=== PATIENT | female | born 1995 | race Caucasian/White ===

== ENCOUNTER 2020-12-23 01:16 | Emergency (ER) | payer OTHER ==
[~2020-12-23] VITALS: Ht 172.7 cm; Wt 77.8 kg
--- NOTE | ~2020-12-23 | EMS ---
[address] [address] EMS Patient Care Report Name: DARRON GARCIA Room #: REG CAROL MJennifer#: [id number] Admission: 12/23/20 Attend Phys: Discharge: Date of : [birth year] Report #: [id number] THIS REPORT FOR: //name// Report Transmitted: 12/23/2020 01:16 EMS Care Summary [facility] MED-ACT Incident [id number] @ 12/23/2020 00:43 Incident Location [address] [facility] er 14 Patient DARRON GARCIA Female, 25 Years 1995 Patient Address [address] [place] [address] Patient History Other,Gastro-Esophageal Reflux Disease (GERD), Patient Allergies Other drug allergy, Patient Medications Methylphenidate, Fexofenadine, Famotidine, Omeprazole, Chief Complaint "She had an allergic reaction." Disposition Transported No Lights/[place] Dis[place] Reason Allergic Reaction/Stings Transported To [facility] Narrative Dispatched to C1 Allergic Reaction. Upon our arrival, patient is noted sitting in ER Room 14 in no apparent distress. She is AOx4. She has no increased work of breathing. Her respirations are adequate in depth and volume. She looks perfused in color for ethnicity, but has some hives and welts on her calves [address] [address] EMS Patient Care Report Name: DARRON GARCIA Room #: REG Edith#: [id number] Admission: 12/23/20 Attend Phys: Discharge: Date of : [birth year] Report #: [id number] upon first examination. RN and patient report: Patient came in to [facility] after work in order to receive her second dose of the Covid vaccine. She received the vaccine at 2049. Around 2109 she started to develop flushing and itching of arms. Patient then developed hives on her thighs and itchiness on her thighs as well. 50mg of Benadryl was administered. Shortly thereafter, patient developed nausea. Due to this, СВЕТЛАНА Munson followed the anaphylaxis protocol since it involved more than one organ system with GI and integumentary. Her first epi was administered around 2149. Patient also received a saline bolus. 2nd epi was administered around 00:26. EMS was then activated for an Emergent Transfer due to the concern of having rebound anaphylaxis. Patient denies any difficulty breathing at any point of her reaction. She reports nausea, itchiness and hives. She denies any pain but reports feeling "different" after the administration of Benadryl. Upon our entrance into the ER, S47 greets EMS and reports, "They wouldn't give report to us. They said we might as well wait for the ambulance." Report obtained by RN. Physical exam, PMH and vitals obtained from СВЕТЛАНА Munson RN. Patient was able to self ambulate to the cot where she is secured with straps plus rails. Cot wheeled to ambulance. Vitals obtained and 4 Lead placed. Patient rests comfortably on the cot throughout transport. [facility] contacted via radio. Cot wheeled to ER Room 11 where patient is able to move herself from cot to facility bed. Report given to RN and MD. Initial Vitals @01:06P: 100,SpO2: 100,IN Suspected: false @01:09P: 99,BP: 140/81,SpO2: 99, @01:03P: 91,R: 20,BP: 135/84,Pain: 0/10,Temp: 97.9F, @PTAP: 95,R: 18,BP: 136/72,SpO2: 100, Assessments @00:55MENTAL:Person Oriented,Time Oriented,Place Oriented,Event Oriented,SKIN:Other,HEENT:Head/Face: No Abnormalities,Neck/Airway: No Abnormalities,LUNG SOUNDS:General: Nausea,ABDOMEN:General: Nausea,PELVIS//GI:EXTREMITIES:Left Arm: No Abnormalities,Right Arm: No Abnormalities,Left Leg: No Abnormalities,Right Leg: No Abnormalities,PULSE:NEURO: Impression Anaphylaxis Procedures @PTAEpinephrine 1:1 - 0.3 Milligrams (mg) - Intramuscular (IM)Response: Improved@PTADiphenhydramine - 50 Milligrams (mg) - Intramuscular (IM)Response: Worse@PTAEpinephrine 1:1 - 0.3 Milligrams (mg) - Intramuscular (IM)Response: Improved@PTASaline - 500 Milliliters (ml) - Intravenous (IV)Response: Improved@PTASurgical Mask on PatientResponse: Unchanged [facility] [address] [place] [address] EMS Patient Care Report Name: DARRON GARCIA Room #: REG Edith#: [id number] Admission: 12/23/20 Attend Phys: Discharge: Date of : 89 Report #: [id number] Timeline PHYSICAL SCIENCE PROFESSOR,Epinephrine 1:1 - 0.3 Milligrams (mg) - Intramuscular (IM),Response: Improved PHYSICAL SCIENCE PROFESSOR,Diphenhydramine - 50 Milligrams (mg) - Intramuscular (IM),Response: Worse PHYSICAL SCIENCE PROFESSOR,Epinephrine 1:1 - 0.3 Milligrams (mg) - Intramuscular (IM),Response: Improved PHYSICAL SCIENCE PROFESSOR,Saline - 500 Milliliters (ml) - Intravenous (IV),Response: Improved PHYSICAL SCIENCE PROFESSOR,Surgical Mask on Patient,Response: Unchanged PHYSICAL SCIENCE PROFESSOR,BP: 136/72 M,PULSE: 95,RR: 18 R,SPO2: 100 Ox,ETCO2: ,BG: ,PAIN: ,GCS: , 00:42,Call Received 00:42,Psap Call 00:43,Dispatched 00:45,En Route 00:50,On Scene 00:54,At Patient 01:03,BP: 135/84 M,PULSE: 91,RR: 20 R,SPO2: Ox,ETCO2: ,BG: ,PAIN: 0,GCS: , 01:04,Depart Scene 01:06,BP: / M,PULSE: 100,RR: R,SPO2: 100 Ox,ETCO2: ,BG: ,PAIN: ,GCS: , 01:09,BP: 140/81 M,PULSE: 99,RR: R,SPO2: 99 Ox,ETCO2: ,BG: ,PAIN: ,GCS: , 01:10,At Destination 01:31,Call Closed Disclaimer v1.1 Copyright 2020 [employer] This EMS Care Summary contains data elements from the applicable legal record (which may be displayed differently). It is designed to provide pertinent information for the following purposes: continuity of care, clinical quality, and state data reporting. The complete legal record is available to ED staff and administrators of the receiving hospital in [employer]'s Patient Tracker. All data is provided "as is."
[2020-12-23] MEDS ORDERED: DECADRON4 MG PO (04:47)
[2020-12-23] MEDS ORDERED: EPIPEN 2-P0.3 MG/0.3 IM (04:47)
[2020-12-23 05:05] VITALS: BP 116/79
== END 2020-12-23 05:06 | disposition home or self-care (01) ==
LOC: ER 01:16
DX: L50.9 Urticaria, unspecified (principal); T50.B95A Adverse effect of other viral vaccines, initial encounter; K21.9 Gastro-esophageal reflux disease without esophagitis; Z88.8 Allergy status to other drugs, medicaments and biological substances; Y92.89 Other specified places as the place of occurrence of the external cause